=== PATIENT | male | born 1970 | race Caucasian/White ===

== ENCOUNTER → 2018-09-24 14:35 | Outpatient (CLI) | payer SELFPAY ==
--- NOTE | 2018-09-24 14:43 | CT_ITS ---
STUDY: CARDIAC CALCIUM SCORING - CT CHEST REASON FOR EXAM: Male, 48 years old. Family history of coronary artery disease. RADIATION DOSAGE (If Supplied By Facility): CTDIvol = ( 12.19 ) mGy, DLP = ( 170.66 ) mGycm TECHNIQUE: Axial non-enhanced images were acquired through the heart for the sole purpose of measuring coronary artery calcium. Individualized dose optimization techniques were used for this CT. COMPARISON: None. FINDINGS: This portion of the report is being generated solely for the evaluation of noncoronary artery structures which have been assessed on plain another report. The lungs are mildly hyperexpanded but without mass or infiltrate. The heart is normal in size. Normal pericardium. There are calcified lymph nodes in the subcarinal space and right hilum. Nonspecific subcentimeter lymph nodes are seen in the precarinal space and AP window. Normal pulmonary arteries. Normal visualized aorta. There are minimal degenerative changes of the thoracic spine. There is a calcified granuloma in the posterior right liver without other abdominal abnormality. CT/Limited Chest CT w/CCTA IMPRESSION: Evidence suggesting old granulomatous disease. Electronically Signed: Ollie Carey DO at 16:32 EDT Tel [phone], Service support ,
[2018-09-24 14:58] VITALS: BP 140/83; PULSE 80; RESP 16; O2SAT 98; BMI 29.9
[2018-09-24 15:15] VITALS: BP 135/72; PULSE 80
[2018-09-24] MEDS: Metoprolol Tartrate 5 MG/5 ML Vial IV (15:15)
[2018-09-24 15:40] VITALS: BP 128/84; PULSE 75; RESP 16; O2SAT 98
--- NOTE | 2018-09-25 09:55 | CA.SCORE ---
Calcium Scoring Date of Study:: 09/24/18 Coronary Calcium Scoring: High-resolution Computed Tomographic imaging of the chest was performed on [09/24/2018], with particular attention paid to the coronary arteries. Images from the examination were analyzed for the presence and extent of coronary artery calcification , using coronary calcium quantification software. The patient tolerated the procedure well and there were no complications. The results of the coronary calcification analysis are provided below. - Findings Left Main (LM): 0 Left Anterior Descending (LAD): 0 Left Circumflex (LCX): 0 Right Coronary Artery (RCA): 0 Total Agatston Score: 0 Percentile Rankin - Conclusion Calcium Scoring Interpretation: 0 No identifiable atherosclerotic plaque. Very low cardiovascular disease risk. <5% chance of presence coronary artery disease A Negative Examination 1-10 Minimal Plaque burden. Significant coronary artery disease very unlikely. 11-100 Mild plaque burden. Likely mild or minimal coronary atherosclerosis. 101-400 Moderate plaque burden Moderate non-obstructive coronary artery disease highly likely. Over 400 Extensive plaque burden. High likelihood of at least one significant coronary stenosis (>50% diameter) The total calcium score (0) is below the 25th percentile for men between the ages of 45 and 49. (Exact percentile calculated to be 25%; this means 24% of the population is similar calcium score and 75% of the population is a higher calcium score than this patient.) A full evaluation of cardiac risk should include a assessment of all conventional risk factors, and the scores and percentile rankings reported herein should be evaluated in this context.
== END ==
PROVIDERS: Family Provider Internal Medicine; PCP Internal Medicine; Referring Provider Nurse Practitioner; Visit Provider Nurse Practitioner
DX: Z82.49 Family history of ischemic heart disease and other diseases of the circulatory system (principal)
CPT/HCPCS: 75571; 76380; A4216

== ENCOUNTER → 2019-03-02 10:23 | Outpatient (CLI) | payer OTHER, SELFPAY ==
[2018-09-24 14:58] VITALS: BMI 29.9
[2019-03-02 12:38] LABS: ALB/GLOB Ratio 0.9 RATIO (0.9-2.4); AST(SGOT) 28 U/L (15-37); Alanine Aminotransfer ALT/SGPT 50 U/L (16-61); Albumin, Serum 3.9 g/dL (3.2-5.0); Alkaline Phosphatase 74 U/L (45-117); Anion Gap 6 (5-15); BUN 14 mg/dL (7-18); BUN/Creat Ratio 14.3 RATIO (10-20); Calcium,Total 8.5 mg/dL (8.5-10.1); Chloride 104 mmol/L (98-107); Cholesterol 188 mg/dL (200); Creatinine, Serum 0.98 mg/dL (0.70-1.30); EST Glomerular Filtration Rate 87 mL/min (>60); Est Glom Filt Rate - Afr Amer 105 mL/min (>60); Globulin 4.2 g/dL (2.2-4.2); Glucose 91 mg/dL (74-106); High Density Lipoprotein 49 mg/dL; PSA,Total - Annual Screen 0.69 ng/mL (0.00-4.00); Potassium 3.8 mmol/L (3.5-5.1); Protein, Total 8.1 g/dL (6.4-8.2); Sodium Level 139 mmol/L (136-145); Thyroid Stim Hormone (TSH) 3.09 uIU/mL (0.358-3.74); Triglycerides 124 mg/dL; Very Low Density Lipoprotein 25 mg/dL (5-40)
== END ==
PROVIDERS: Family Provider Internal Medicine; PCP Internal Medicine; Referring Provider Nurse Practitioner; Visit Provider Nurse Practitioner
DX: E03.9 Hypothyroidism, unspecified (principal); E78.5 Hyperlipidemia, unspecified; R73.09 Other abnormal glucose; Z12.5 Encounter for screening for malignant neoplasm of prostate
CPT/HCPCS: 36415; 80053; 80061; 84153; 84443; G0103

== ENCOUNTER 2024-05-29 15:30 | Emergency (ER) | payer OTHER, SELFPAY ==
[2024-05-29 15:30] VITALS: BP 136/92; PULSE 89; RESP 18; TEMP 36.6; O2SAT 97; BMI 31.4
--- NOTE | 2024-05-29 15:50 | RAD_ITS ---
PROCEDURE: HAND MIN 3 VIEWS 05/29/2024 REASON FOR EXAM: 54-year-old male, fall, pain at the base of the right thumb. TECHNIQUE: 3 views of the right hand COMPARISON: None. FINDINGS: Bones: No acute fracture. No aggressive osseous lesions. Joints: Normal alignment. Joint spaces preserved. No arthropathic features. Soft tissues: Soft tissues are unremarkable. Other: No radiopaque foreign body. RAD/Hand Min 3 Views IMPRESSION: NO ACUTE FRACTURE OR DISLOCATION. If acute hand or wrist trauma is suspected an d initial radiographs are negative or equivocal, repeat radiographs in 10-14 days is recommended to evaluate for occult fracture . Reading Location: [id number]
--- NOTE | 2024-05-29 16:06 | EX.ED.UPPERE ---
HPI <HORACE Casanova - Last Filed: 05/29/24 16:14> History of Present Illness Chief Complaint: Upper Extremity Injury Narrative Narrative: Patient is a 54-year-old male with no significant medical history presents to the emerged part with right hand pain. Patient states that he was working in his garage when he slipped forward landing on his right hand. Patient does have swelling to the right palm. He states when he got up he took some aspirin and continued working. Pay states it started get more sore swollen he is here for evaluation. PFS <HORACE Casanova - Last Filed: 05/29/24 16:14> [facility] Medical History no medical history Allergy/AdvReac Type Severity Reaction Status Date / Time No Known Allergies Allergy Verified 05/29/24 15:31 Social History Smoking Status: Unknown if ever smoked ROS <HORACE Casanova - Last Filed: 05/29/24 16:14> ROS ED ROS Narrative Constitutional: Negative for fever, chills, weight loss, weakness Eyes: Negative for vision loss, vision change, double vision ENT: Negative for any sore throat, ear pain, congestion Cardiovascular: Negative for any chest pain, tightness, palpitations Respiratory: Negative for any cough, sputum production, hemoptysis, dyspnea, dyspnea on exertion, orthopnea Gastrointestinal: Negative for any abdominal pain, nausea, vomiting, diarrhea, constipation, blood in stool, blood in vomit : Negative for any urinary frequency, dysuria, retention, blood in urine Muscle skeletal: Negative for any neck pain, back pain. Positive right hand pain Neurological: Negative for any headache, syncope, dizziness Skin: Negative for any rashes, itching, abrasions, lacerations Psychiatric: Negative for any depression, anxiety, stress, suicidal ideation, homicidal ideation Hematologic: Negative for any excessive bruising, easy bleeding EXAM <HORACE Casanova - Last Filed: 05/29/24 16:14> Physical Exam Narrative Exam Narrative: Vital signs reviewed. Extremities: Patient's hand does have some ecchymosis, edema to the right hand to the anterior aspect of the palm just below the fat pad of the thumb. Patient had full flexion and extension of the wrist. No snuffbox tenderness. +2 radial pulse. Most the pain is with automatic bow maker machine tender more towards the palmar aspect Neuro: Cranial nerves II through XII intact, no focal neurological deficits. Skin: Clean dry and intact with no rash, purpura, petechiae, vesicles or pustules. Backs/flank: No CVA tenderness, no midline spinal tenderness, no deformity. Psych: Normal mood and affect. No SI, HI or acute psychosis. Const Vital Signs: 05/29/24 15:30 Temperature 98 F Temperature Source Oral Pulse Rate 89 Respiratory Rate 18 Blood Pressure 136/92 H Blood Pressure Mean 106 Pulse Ox 97 Oxygen Delivery Method Room Air Positive well nourished and well developed General Appearance ED: well developed [facility] <HORACE Casanova - Last Filed: 05/29/24 16:14> [facility] Treatment and Re-Evaluation Narrative: Differential diagnosis includes however is not limited to: Distal radial fracture, wrist sprain, hand fracture, phalanx fracture, metacarpal fracture, hand sprain Patient appears generally well, vital signs are stable, patient is nontoxic-appearing. Presenting to the [facility] after mechanical fall injuring his right hand. X-rays 3 view were completed of the right hand, this was interpreted by the ER physician. Patient's x-rays were negative for any acute fracture. Patient instructed to continue to elevate, ice. Patient on reevaluation had no pain to the posterior wrist, no pain to the distal radial distal ulnar area. Patient was offered a wrist plant, Syed wrap, he did decline. At this time, he instructed ice, elevate and return for any worsening symptoms <Dr. Fernando Lanier DO - Last Filed: 05/29/24 16:55> [facility] Treatment and Re-Evaluation Narrative: Differential diagnosis includes however is not limited to: Distal radial fracture, wrist sprain, hand fracture, phalanx fracture, metacarpal fracture, hand sprain Patient appears generally well, vital signs are stable, patient is nontoxic-appearing. Presenting to the [facility] after mechanical fall injuring his right hand. X-rays 3 view were completed of the right hand, this was interpreted by the ER physician. Patient's x-rays were negative for any acute fracture. Patient instructed to continue to elevate, ice. Patient on reevaluation had no pain to the posterior wrist, no pain to the distal radial distal ulnar area. Patient was offered a wrist plant, Syed wrap, he did decline. At this time, he instructed ice, elevate and return for any worsening symptoms Attending note: I have personally performed a face to face assessment of the patient and have reviewed the HELENE note. I personally made/approved the management plan and take responsibility for the patient management. I performed a substantive portion of the visit including all aspects of the following. My harrell findings include: Mechanical fall slipping on oil prior to arrival. [id number]. Pain to right thenar eminence of the hand. He took 2 aspirins prior to arrival. Denies head injuries. Exam no elbow or wrist tenderness. There is tenderness to the thenar eminence with ecchymosis. No tenderness of the phalanges thumb or fingers. Skin is intact. Treat additional Tylenol and ice. Three-view x-ray right hand obtained turbid myself negative for any fractures. Declined any Syed wrap or splint. He will continue to ice and elevate. Outpatient follow-up. Discharge Plan Triage Chief Complaint: Upper Extremity Injury ED Midlevel Provider: Andrea Escoto ED Provider: Fernando Lanier Dx/Rx/DC Orders Clinical Impression: Fall, Hand sprain Instructions: ED Hand Sprain Primary Care Provider: Kathy Zavala Referrals: Kathy Zavlaa DO [Primary Care Provider] - Activity Restrictions/Additional Instructions: Please follow-up outpatient Print Language: Iraqi Disposition Disposition: Home, Self Care Discharge Date/Time: 05/29/24 16:22
[2024-05-29 16:21] VITALS: BP 131/66; PULSE 72; RESP 18; TEMP 36.9; O2SAT 100
[2024-05-29] MEDS: Acetaminophen 500 MG Tablet 1000 MG PO (16:21)
== END 2024-05-29 16:22 | disposition home or self-care (01) ==
PROVIDERS: Emergency Provider Emergency Medicine; PCP Internal Medicine; Visit Provider Emergency Medicine
DX: S63.91XA Sprain of unspecified part of right wrist and hand, initial encounter (principal); X58.XXXA Exposure to other specified factors, initial encounter
CPT/HCPCS: 73130; 99282